=== PATIENT | female | born 1985 | race American Indian/Alaskan Native ===

== ENCOUNTER 2017-03-27 13:57 | Outpatient (CLI) | payer MEDICAID ==
[2017-03-27 14:46] LABS: Basophils % (Auto) 0.7 % (0.0-1.8); Eosinophils % (Auto) 11.4 % (0.0-4.3); Hematocrit 39.6 % (30.3-42.9); Hemoglobin 12.7 gm/dl (10.1-14.3); Mean Corpuscular HGB Conc 32 % (30-34); Mean Corpuscular Hemoglobin 28 pg (28-32); Mean Corpuscular Volume 88 fl (79-97); Platelet Count 304 K/mm3 (140-440); Red Blood Count 4.49 M/mm3 (3.65-5.03); Red Cell Distribution Width 13.5 % (13.2-15.2); White Blood Count 11.6 K/mm3 (4.5-11.0)
[2017-03-27 15:04] LABS: Alanine Aminotransferase 9 units/L (7-56); Albumin 4.5 g/dL (3.9-5); Albumin/Globulin Ratio 1.3 %; Alkaline Phosphatase 61 units/L (35-129); Anion Gap 19 mmol/L; BUN/Creatinine Ratio 11.42; Blood Urea Nitrogen 8 mg/dL (7-17); Calcium 9.1 mg/dL (8.4-10.2); Carbon Dioxide 25 mmol/L (22-30); Chloride 101.7 mmol/L (98-107); Cholesterol 121 mg/dL (50-199); Glucose 145 mg/dL (65-100); HDL Cholesterol 53 mg/dL (40-59); LDL Cholesterol,Direct 49 mg/dL (50-130); Potassium 4.1 mmol/L (3.6-5.0); Sodium 142 mmol/L (137-145); Triglycerides 97 mg/dL (2-149)
--- NOTE | 2017-03-27 16:47 | XRay Report ---
CHEST 2 VIEWS INDICATION: Abnormal finding. COMPARISON: None similar at this institution. FINDINGS: Frontal and lateral chest radiographs demonstrate limited inspiration with grossly normal cardiomediastinal silhouette and slight bibasilar crowded markings/atelectasis. No acute osseous process. Colonic stool/possible constipation. CONCLUSION: Limited exam without definite acute disease, as described. Please correlate. Thank you for the opportunity to participate in this patient's care.
== END 2017-03-27 13:58 | disposition home or self-care (01) ==
LOC: XRAY 13:57
PROVIDERS: ATTEND Internal Medicine
DX: Z00.01 Encounter for general adult medical examination with abnormal findings (principal); H91.3 Deaf nonspeaking, not elsewhere classified; Z68.20 Body mass index [BMI] 20.0-20.9, adult; Z11.1 Encounter for screening for respiratory tuberculosis
CPT/HCPCS: 36415; 71020; 80053; 80061; 84443; 85025